=== PATIENT | female | born 1950 | race Caucasian/White ===

== ENCOUNTER 2016-10-31 07:36 | Day surgery (SDC) | payer OTHER ==
[2016-10-31] MEDS ORDERED: TETRACAINE 0.5% OPHTH 1 DOSE AFFEYE ONE ×6 (07:46→11:55)
[2016-10-31] MEDS ORDERED: VIGAMOX 0.5% OPHTH 1 DOSE AFFEYE ONE ×4 (07:47→11:32)
[2016-10-31] MEDS ORDERED: NS 500 ML IV 500 ML IV ONE (07:53)
[2016-10-31] MEDS ORDERED: PROLENSA OPHTH 1 DOSE AFFEYE ONE (07:58)
[2016-10-31] MEDS ORDERED: ALPHAGAN-P OPHTH 1 DOSE AFFEYE ONE (07:59)
[2016-10-31] MEDS ORDERED: AK-DILATE 2.5% OPHTH 1 DOSE OP ONE ×4 (08:00→08:03)
[2016-10-31] MEDS ORDERED: MYDRIACIL OPHTH 1 DOSE AFFEYE ONE ×4 (08:00→08:03)
[2016-10-31] MEDS ORDERED: CYCLOGYL 1% OPHTH 1 DOSE OP ONE ×4 (08:00→08:03)
[2016-10-31] MEDS ORDERED: VERSED ONE (09:47)
[2016-10-31] MEDS: VERSED ONE ×2 (10:56→11:17)
[2016-10-31] MEDS ORDERED: AK-DILATE 10% OPHTH 1 DOSE AFFEYE ONE (11:17)
[2016-10-31] MEDS ORDERED: BETADINE OPHTH SOLN 5% EACHEYE ONE (11:25)
[2016-10-31] MEDS ORDERED: ADRENALINE CHL INJ IJ ONE ×2 (11:32→11:55)
[2016-10-31] MEDS ORDERED: BSS OPHTH (PLAIN) 500 ML with VANCOMYCIN HCL 500 MG VIAL 25 MG, ADRENALINE CHL INJ 1 MG IR ONE ×6 (11:32)
[2016-10-31] MEDS ORDERED: XYLOCAINE-MPF 1% IJ ONE ×2 (11:32→11:55)
[2016-10-31] MEDS ORDERED: DUOVISC IO ONE ×2 (11:32→11:55)
[2016-10-31 12:39] VITALS: BP 123/60
== END 2016-10-31 12:40 | disposition home or self-care (01) ==
LOC: SURG1 07:36
PROVIDERS: ATTEND Ophthalmology
PROC: 08RK3JZ Replacement of Left Lens with Synthetic Substitute, Percutaneous Approach (ICD-10-PCS; principal; 2016-10-31 11:15)
PROC: 08DK3ZZ Extraction of Left Lens, Percutaneous Approach (ICD-10-PCS; principal; 2016-10-31 11:15)
PROC: 08J1XZZ Inspection of Left Eye, External Approach (ICD-10-PCS; principal; 2016-10-31 11:15)
DX: H25.12 Age-related nuclear cataract, left eye (principal); H25.012 Cortical age-related cataract, left eye; H52.222 Regular astigmatism, left eye
CPT/HCPCS: A4217; J0170; J2250; J3370